=== PATIENT | female | born 1995 | race Caucasian/White ===

== ENCOUNTER 2022-02-03 10:14 | Emergency (ER) | payer BC, OTHER, SELFPAY ==
[2022-02-03 10:41] VITALS: BP 116/80; PULSE 112; RESP 18; TEMP 37.2; O2SAT 99
--- NOTE | 2022-02-03 11:10 | ED.URI ---
HPI - URI/Sore Throat General Chief Complaint: Upper Respiratory Infection Stated Complaint: fever,sorethroat Time Seen by Provider: 02/03/22 11:10 History of Present Illness HPI Narrative: 26-year-old female presented for complaint of sore throat for 2 days, fever started yesterday. Also endorses bilateral ear pressure. Son tested positive for strep throat earlier this week. Denies associated nausea, vomiting, diarrhea, cough or shortness of breath. Taking Tylenol and ibuprofen for symptoms. Related Data Home Medications Medication Instructions Recorded Confirmed levonorgestrel 20 mcg/24 hours (7 1 device intrauterine ONCE 02/03/22 02/03/22 yrs) 52 mg intrauterine device (Mirena) multivit with minerals-iron 18 1 tablet PO DAILY 02/03/22 02/03/22 mg-folic ac 400 mcg-vit K 25 mcg tablet (Adults Multivitamin) Allergies Allergy/AdvReac Type Severity Reaction Status Date / Time No Known Allergies Allergy Verified 02/03/22 11:14 Review of Systems Review of Systems: CONSTITUTIONAL: Denies body aches EYES: Denies visual changes, redness, or discharge. ENT: Denies rhinorrhea, congestion CARDIOVASCULAR: Denies chest pain, palpitations, or edema. RESPIRATORY: Denies dyspnea. GASTROINTESTINAL: Denies abdominal pain, nausea, vomiting, or diarrhea. SKIN: Denies rash, itching, or wounds. MUSCULOSKELETAL: Denies back pain, joint pain, or myalgia. Exam Narrative: GENERAL: Ill-appearing, nontoxic EYES: conjunctivae clear ENT: Mucous membranes moist. TMs pearly renner with normal light reflex bilaterally; no tragal tenderness. Oropharynx erythematous without lesions. Tonsils absent. no drooling, no hoarseness, no trismus, uvula midline. No tripod positioning, hot potato voice, or soft palate swelling. NECK: Supple. Mild anterior cervical lymphadenopathy CHEST: Clear to auscultation, No respiratory distress, speaks in full sentences. HEART: Regular rate and rhythm. No murmur heard. SKIN: Warm, dry, no rash. NEURO: Alert and oriented x3. Course Course Emergency Course: Patient is aware of diagnosis, understands and agrees to treatment plan. Anticipatory guidance given. Patient agrees to follow-up as directed and is aware of reasons to seek care at the emergency department. Portions of this record may have been created with voice recognition software Level of Care: Express Care Visit Vital Signs Vital signs: Vital Signs Temperature 99 F 02/03/22 10:41 Pulse Rate 112 H 02/03/22 10:41 Respiratory Rate 18 02/03/22 10:41 Blood Pressure 116/80 02/03/22 10:41 Pulse Oximetry 99 02/03/22 10:41 Oxygen Delivery Room Air 02/03/22 10:41 Temperature 99 F 02/03/22 10:41 Pulse Rate 112 H 02/03/22 10:41 Respiratory Rate 18 02/03/22 10:41 Blood Pressure 116/80 02/03/22 10:41 Pulse Oximetry 99 02/03/22 10:41 Oxygen Delivery Room Air 02/03/22 10:41 MDM - URI/Sore Throat MDM Narrative Medical decision making narrative: Positive strep result reviewed with pt. Advise supportive treatments. Patient is appropriate for outpatient treatment and follow-up. Differential Diagnosis Differential diagnosis: Likely upper respiratory infection, viral infection and pharyngitis Discharge Plan Discharge Clinical Impression: Strep pharyngitis Patient Disposition: Home, Self-Care Condition: Stable Instructions: Antibiotic Form, Strep Throat (ED) Additional Instructions: - Take the antibiotic as directed. Fever and sore throat typically resolve within one to three days. Most patients can return to work, school, or daycare after 24 hours of antibiotic therapy, provided you are fever free and otherwise well. -Eat and drink things that are easy to swallow, like soft foods, cool liquids, tea with honey, or popsicles . -Salt water gargles and/or may use topical anesthetic ( Chloraseptic spray) or lozenges to relieve dryness or throat pain -Alternate Tylenol and ibuprofen as n
== END 2022-02-03 11:20 | disposition home or self-care (01) ==
PROVIDERS: Emergency Provider Nurse Practitioner Family; PCP Nurse Practitioner
DX: J02.0 Streptococcal pharyngitis (principal)
CPT/HCPCS: 87880; 99203; G0463

== ENCOUNTER 2022-05-13 10:08 | Emergency (ER) | payer BC, OTHER, SELFPAY ==
[2022-05-13 10:43] VITALS: BP 112/73; PULSE 73; RESP 16; TEMP 36.5; O2SAT 100
--- NOTE | 2022-05-13 11:19 | ED.URI ---
HPI - URI/Sore Throat General Chief Complaint: Upper Respiratory Infection Stated Complaint: sorethroat,bilateral ear pain Time Seen by Provider: 05/13/22 10:50 Source: patient Mode of arrival: ambulatory Limitations: no limitations History of Present Illness HPI Narrative: Ms. Dumont is a 26-year-old female patient presenting to clinic today with complaints of sore throat and bilateral ear pain x1 day. She reports that she has had direct exposure to somebody with strep pharyngitis. MD elicited complaint: sore throat and nasal congestion Related Data Home Medications Medication Instructions Recorded Confirmed levonorgestrel 20 mcg/24 hours (8 1 device intrauterine ONCE 02/03/22 05/13/22 yrs) 52 mg intrauterine device (Mirena) Allergies Allergy/AdvReac Type Severity Reaction Status Date / Time No Known Allergies Allergy Verified 05/13/22 10:35 Review of Systems Review of Systems: Pertinent positives per HPI. Patient denies any fever, chills, rash, headache, visual changes, dizziness, shortness of breath, chest pain, palpitations, nausea, vomiting, diarrhea, constipation, abdominal pain, or any urinary issues. PMFSH Comments At the time of my signature, I reviewed and agree with the nursing past medical, surgical, social, and family history. There is no relevant family history pertinent to the patient complaint. Exam Narrative: General: Well-developed, well nourished, in no apparent distress Head: Normocephalic, atraumatic Eyes: Pupils equally round and reactive to light bilaterally, EOM intact, sclera and conjunctive clear, no discharge, lids normal Ears: TMs intact and dull, ear canals clear, no drainage, grossly hearing normal. Nose: Nares patent, clinic discharge, no inflammation, no sinus tenderness. Mouth: Oral pharynx without lesions or masses, good dentition, MMM. Oropharynx red, postnasal drip Neck: Supple, trachea midline, no enlargement of anterior or posterior cervical nodes, no thyroid masses or goiter palpable. Cardio: Regular rate and rhythm, s1 and s2 normal, no murmur appreciated. Resp: Clear to auscultation bilaterally, no rhonchi, rales, wheezing or rubs Course Course Emergency Course: Portions of this record may have been created with voice recognition software. Level of Care: Express Care Visit Vital Signs Vital signs: Vital Signs Temperature 36.5 C 05/13/22 10:43 Pulse Rate 73 05/13/22 10:43 Respiratory Rate 16 05/13/22 10:43 Blood Pressure 112/73 05/13/22 10:43 Pulse Oximetry 100 05/13/22 10:43 Oxygen Delivery Room Air 05/13/22 10:43 Temperature 36.5 C 05/13/22 10:43 Pulse Rate 73 05/13/22 10:43 Respiratory Rate 16 05/13/22 10:43 Blood Pressure 112/73 05/13/22 10:43 Pulse Oximetry 100 05/13/22 10:43 Oxygen Delivery Room Air 05/13/22 10:43 Vital signs reviewed MDM - URI/Sore Throat Differential Diagnosis Differential diagnosis: Likely sinusitis, viral infection, influenza and pharyngitis Lab Data Labs: Strep Screen Presumptive Negative *(Reference Range: Negative)* Discharge Plan Discharge Clinical Impression: Acute dysfunction of both eustachian tubes Upper respiratory infection Qualifiers: URI type: unspecified URI Qualified Code(s): J06.9 - Acute upper respiratory infection, unspecified Pharyngitis Qualifiers: Pharyngitis/tonsillitis etiology: unspecified etiology Qualified Code(s): J02.9 - Acute pharyngitis, unspecified Patient Disposition: Home, Self-Care Condition: Stable Instructions: Antibiotic Form, Pharyngitis (ED), Upper Respiratory Infection (ED) Additional Instructions: Strep screen was negative in the clinic today. We will send for culture Increase fluids and stay well hydrated Tylenol/motrin for pain/fever Flonase and OTC antihistamines as directed Vicks vapor rub to open sinuses Sinus rinses for congestion
== END 2022-05-13 11:30 | disposition home or self-care (01) ==
PROVIDERS: Emergency Provider Nurse Practitioner Family; PCP Nurse Practitioner
DX: H69.93 Unspecified Eustachian tube disorder, bilateral (principal); J02.9 Acute pharyngitis, unspecified
CPT/HCPCS: 87081; 87880; 99213; G0463